=== PATIENT | female | born 1955 | race Caucasian/White ===

== ENCOUNTER 2021-02-26 11:36 | Outpatient (CLI) | payer MEDICARE, OTHER, SELFPAY ==
--- NOTE | 2021-02-26 11:39 | ECG_ITS ---
Measurements Intervals [place] Rate: 67 P: 57 [place]: 147 QRS: -18 QRSD: 93 T: 23 QT: 355 QTc: 376 Interpretive Statements SINUS RHYTHM WITH SINUS ARRHYTHMIA DELAYED PRECORDIAL R/S TRANSITION VOLTAGE CRITERIA FOR LVH BASELINE ARTIFACT- I, II, III, AVR, AVL, AVF BORDERLINE ECG Electronically Signed On 02-26-2021 12:04:55 CDT by Yoni CALLOWAY
== END 2021-02-26 11:37 | disposition home or self-care (01) ==
PROVIDERS: PCP Family Medicine; Visit Provider Nurse Practitioner Family
DX: I49.8 Other specified cardiac arrhythmias (principal)
CPT/HCPCS: 93005

== ENCOUNTER 2023-06-23 14:14 | Outpatient (CLI) | payer MEDICARE, SELFPAY | END 2023-06-23 14:15 | disposition home or self-care (01) | LOC: ANHAUDIO 14:15 | PROVIDERS: PCP Family Medicine; Visit Provider Family Medicine | DX: H90.3 Sensorineural hearing loss, bilateral (principal); H93.12 Tinnitus, left ear | CPT/HCPCS: 92557; 92567 ==

== ENCOUNTER 2023-08-05 10:37 | Outpatient (CLI) | payer OTHER, MEDICARE, SELFPAY ==
--- NOTE | ~2023-08-05 | MR_ITS ---
MRI of the lumbar spine Clinical History: Pain Technique: Axial T2-weighted images, and sagittal T1-weighted, T2-weighted, and and T2 fat-sat images were acquired. Findings: There is no fracture or subluxation of the lumbar spine. Vertebral bodies maintain normal h eight and alignment. No suspicious bone marrow signal abnormality seen. At L1-L2, there is mild disc bulge and mild to moderate facet arthropathy. No central canal stenosis. There is minimal left neural foraminal narrowing. Right neural foramen preserved. At L2-L3, there is diffuse disc bulge with mild to moderate facet arthropathy. No corey central canal stenosis or neural foraminal narrowing. L3-L4, there is advanced degenerative disc narrowing. Disc bulge and facet arthropathy result in mild central canal stenosis/thecal sac compression. There is mild right neural foraminal narrowing. Left neural foramen preserved. At L4-L5, there is advanced degenerative disc narrowing. There is diffuse disc bulge and moderate fac et arthropathy, with left lateral recess stenosis. There is severe left neural foraminal narrowing. R ight neural foramen preserved. No central canal stenosis. At L5-S1, there is advanced degenerative disc narrowing. There is a central to right paracentral disc protrusion/extrusion, with annular fissure present. There is moderate facet arthropathy. There is se haritha left neural foraminal narrowing. Right neural foramen preserved. No corey central canal stenosis . Paravertebral soft tissues are unremarkable. Impression: Moderate to advanced degenerative spondylosis, as detailed above. Reviewed, dictated and finalized at [facility]. [employer] DIRECTOR Impression: Moderate to advanced degenerative spondylosis, as detailed above.
== END 2023-08-05 10:38 ==
LOC: MICIMG 10:40
PROVIDERS: PCP Family Medicine; Visit Provider Family Medicine
DX: M47.896 Other spondylosis, lumbar region (principal)
CPT/HCPCS: 72148

== ENCOUNTER 2024-01-08 11:00 | Outpatient (RCR) | payer OTHER, MEDICARE, SELFPAY ==
--- NOTE | 2023-12-08 15:31 | OPREHPOC ---
Outpatient Therapy Plan of Care This is a Multidisciplinary Plan of Care that may contain components documented by all disciplines (PT, OT, and ST.) PT Problem 1 PT Problem #1 Knowledge Deficit PT Goal 1 Goal *indep with HEP PT Problem 2 PT Problem #2 Pain PT Goal 1 Goal 1* pt report pain rating at worst of 7/10 2* radicular pain into R LE to knee at worst 3* self assessment Oswestry rating of 30% limitation in activity level 4* pt report activity level with standing /walking / in home tasks of 60 minutes before pain increases PT Problem 3 PT Problem #3 Impaired Strength PT Goal 1 Goal increase strength of trunk and hips, to increase stability to spine and decrease pain 1* pt able to perform exercises sitting on ball x 15 reps, with good stability 2* 2 minute walking test distance of 475' without an increase in pain reported
--- NOTE | 2023-12-08 15:31 | PTOPEVAL1 ---
Assessment and note entered by Bruna Cardozo, PT Evaluation Information Assessment Status Evaluation Diagnosis lumbar spondylosis Onset Jun 2023 Subjective Information picked up a box at work, onset of back pain; initially had pain in both legs, now in L leg only have been to chiropractor, PT at another facility 10 visits--heat and exercises--hurts more when leave there than when went in; had 2 injections into nerve and joint- helped short term; MRI in Aug 2023: report states moderate to severe advanced degenerative spondylosis, L 5-S1 disc extrusion. 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[employer], 5 hour shifts; Reported Pain Level Pain Score Self Report Additional Pain Score Comments pain range in the past week 3-06/13; radicular pain R to buttock/ L LE: constant to buttock, intermittent to top of toes; increase pain: at night with lying down to sleep decrease pain: sit, tylenol, biofreeze; change positions;ice with sleeping reports: 2 hours at most, then awaken with pain and problems going back to sleep; reported stand/walk/home tasks 30-60 min heat feels good when it is on, but when take it off, hurts more Assessment PT Clinical Summary Raven has the diagnosis of lumbar spondylosis. Onset of pain with lifting at work in June. She reports intermittent radicular pain into L toes. Self assessment Oswestry rating of 42% limitation in activity level. She is not working due to pain and is under the care of her general dr and pain management. With the evaluation: radicular pain is increased with trunk extension; ambulates with a limp on L LE; 2 minute walking test distance is 400' with increase in radicular pain; weakness of trunk and hips Skilled PT is indicated f
--- NOTE | 2023-12-15 10:13 | PCPTNOTE ---
Pt. called to cancel her PT appointment today due to feeling ill.
--- NOTE | 2024-01-08 11:58 | PTOPPROG ---
Assessment and note entered by Bruna Cardozo, PT Progress Information Assessment Status Progress Diagnosis lumbar spondylosis Onset Jun 2023 Subjective Information feel like back is about the same pain; back hurts no matter what I do, cannot figure out what hurts it; more pain at night in bed, when trying to move and change positions; to see dr marisa Longoria; PAIN: range in the past week -06/13; into L LE to knee now, with intermittent to toes, lasting about 30 min; unable to state anything that increases or decreases her pain--except end of day and when lying in bed more pain; using over the counter meds and biofreeze; pain into L LE to knee at worst--reports at start of therapy was in L leg; at onset of pain was in both legs; no longer in R LE; reports L leg swollen; report tolerance of walking/standing/home activity 20-30 minute tolerance; with sleeping, sleep 2 hours, then wake up and have problems getting comfortable and getting back to sleep-- off/on rest of night Assessment PT Clinical Summary Raven has received 7 PT sessions. She called/ canceled 1 appointment. Compared to the initial evaluation: pain rating is the same at -06/13 with radicular pain into L LE intermittent to foot; self assessment Oswestry from 42% to 56% limitation in activity level; reported sleeping is the same and walking/standing tolerance decreased from 30-60 min to 20-30 minutes; increase in trunk and LE strength; continues to have pain with trunk extension more than flexion; 2 minute walking test distance increased 25'; education completed for self management of pain and HEP. The goals were partially met, but continues to have radicular pain and limited activity tolerance She has a follow up appointment with dr. ARAUZ PT. Await additional orders, if PT is to continue. Plan of Care Interventions Aquatic Therapy,Electrical Stimulation,Hot Pack/ Cold Pack,Manual Therapy,Mechanical Traction,Neuro Re-education,Patient/Caregiver
--- NOTE | 2024-01-15 10:15 | PCPTNOTE ---
Pt called on 01/03/24 to cancel 01/15/24 and Re-eval on 01/18/24. Pt on hold going to see Awaiting new orders to andrew.
--- NOTE | 2024-02-08 10:42 | PTOPDC ---
Assessment and note entered by Bruna Cardozo, PT Discharge Report Assessment Status Discharge - Pt Not Present Diagnosis lumbar spondylosis Onset Jun 2023 Subjective Information pt was not seen this date. Assessment PT Clinical Summary Raven has not received any additional treatments since the progress report dated 01-08-24. Refer to that report for her status at the last session. Discharge PT services. The goals were not addressed. Plan of Care PT Services Indicated No
== END 2024-02-08 11:31 | disposition home or self-care (01) ==
LOC: ANHPT 11:00
PROVIDERS: PCP Family Medicine; Visit Provider Family Medicine
DX: M47.896 Other spondylosis, lumbar region (principal)
CPT/HCPCS: 97012; 97014; 97110; 97113; 97140; 97161; 97530; G0283

== ENCOUNTER 2024-04-19 13:39 | Outpatient (CLI) | payer OTHER, SELFPAY ==
--- NOTE | 2024-04-19 | ECG_ITS ---
Test Date: 2024-04-19 14:40:15 Measurements Intervals [place] Rate: 62 P: 67 [place]: 160 QRS: -14 QRSD: 108 T: 22 QT: 376 QTc: 383 Interpretive Statements SINUS RHYTHM WITH SINUS ARRHYTHMIA NORMAL ELECTROCARDIOGRAM No previous ECG available for comparison Electronically Signed On 04-19-2024 15:19:07 CDT by Enoc Bland M.D.
--- NOTE | ~2024-04-19 | XR_ITS ---
EXAMINATION: XR chest 2V 04/19/2024 14:08 INDICATION: Preop testing PROCEDURE: 2 view chest COMPARISON: 07/28/2009 FINDINGS: The lungs are clear. The cardiomediastinal silhouette is within normal limits. There are no pleural effusions. There is no pneumothorax suspected. IMPRESSION: 1: NO ACUTE CARDIOPULMONARY DISEASE. Reviewed, dictated and finalized at location [facility].
[2024-04-19 14:33] LABS: Basophils Absolute Auto 0.1 K/mm3 (0.0-0.1); Basophils Percent Auto 1.1 % (0.2-1.2); Eosinophils Absolute Auto 0.2 K/mm3 (0-0.3); Eosinophils Percent Auto 4.5 % (0-4.4); Hematocrit 41.3 % (37.0-47.0); Hemoglobin 13.2 g/dL (12.0-15.0); Immature Granulocyte Absolute 0.02 K/mm3 (0.00-0.031); Immature Granulocyte Percent A 0.4 % (0-0.5); Lymphocytes Absolute Auto 1.67 K/mm3 (0.9-3.2); Mean Corpuscular Hemoglobin 26.7 pg (26-34); Mean Corpuscular Volume 83.6 fl (80-100); Mean Platelet Volume 9.8 fl (7.4-10.4); Monocytes Absolute Auto 0.5 K/mm3 (0.1-0.6); Monocytes Percent Auto 9.3 % (2.6-8.5); Neutrophils Absolute Auto 2.9 K/mm3 (1.3-6.7); Neutrophils Percent Auto 53.7 % (45.5-73.1); Platelet Count Result 286 k/mm3 (150-375); Red Blood Count 4.94 M/mm3 (4.2-5.4); Red Cell Distribution Width 14.2 % (11.5-14.5); White Blood Count 5.4 K/mm3 (4.5-10.0)
[2024-04-19 14:46] LABS: Prothrombin Time 13.7 Seconds (11.1-14.7)
[2024-04-19 14:47] LABS: Partial Thromboplastin Time 27.5 Seconds (22.3-36.8)
[2024-04-19 14:50] LABS: Alanine Aminotransferase 16 U/L (6-35); Albumin Level 4.3 g/dL (3.5-5.1); Alkaline Phosphatase 97 U/L (38-126); Anion Gap 10 mmol/L (4-12); Aspartate Amino Transferase 26 U/L (14-36); Bilirubin,Total 0.5 mg/dL (0.2-1.3); Blood Urea Nitrogen 22 mg/dL (7-17); Calcium 9.7 mg/dL (8.4-10.2); Carbon Dioxide 25 mmol/L (22-30); Chloride 100 mmol/L (98-107); Estimated Glomerular Filt Rate > 60; Glucose 102 mg/dL (65-110); Potassium 3.8 mmol/L (3.4-5.0); Sodium 135 mmol/L (137-145)
== END 2024-04-19 13:40 | disposition home or self-care (01) ==
PROVIDERS: PCP Family Medicine Sports Medicine
DX: Z01.818 Encounter for other preprocedural examination (principal); I49.8 Other specified cardiac arrhythmias
CPT/HCPCS: 36415; 71046; 80053; 85025; 85610; 85730; 93005